=== PATIENT | female | born 1965 | race Caucasian/White ===

== ENCOUNTER 2016-11-10 12:57 | Observation (INO) | payer BC ==
[~2016-11-10] VITALS: Ht 180.3 cm; Wt 80.0 kg
[2016-11-10 13:00] VITALS: BP 142/87; PULSE 96; RESP 24; TEMP 97.8; O2SAT 100
[2016-11-10 13:09] VITALS: BP 120/63; PULSE 69; RESP 18; O2SAT 99
[2016-11-10] MEDS ORDERED: ALUMINUM/MAGNESIUM/SIMETH 30 ML CUP PO ONE (13:30)
[2016-11-10] MEDS ORDERED: LIDOCAINE VISCOUS 2% SOLN 15 ML UDC PO ONE (13:30)
[2016-11-10] MEDS ORDERED: SODIUM CHLORIDE 0.9% FLUSH 10 ML FLUSH IVF PRN (13:30)
[2016-11-10] MEDS ORDERED: ASPIRIN 325 MG TAB PO ONE (13:30)
[2016-11-10 13:40] LABS: BASOPHIL # 0.1 TH/MM3 (0-0.2); BASOPHIL % 1.1 % (0.0-2.0); EOSINOPHIL # 0.2 TH/MM3 (0-0.4); EOSINOPHIL % 2.4 % (0.0-4.0); HEMO FLAGS DIFF FINAL; LYMPH % 36.6 % (9.0-44.0); MEAN CELL VOLUME 86.6 FL (80.0-100.0); MEAN CORPUSCULAR HEMOGLOBIN 29.3 PG (27.0-34.0); MEAN CORPUSCULAR HGB CONC 33.8 % (32.0-36.0); MONO % 10.5 % (0.0-8.0); NEUT % 49.4 % (16.0-70.0); PLATELET COUNT 244 TH/MM3 (150-450); RED BLOOD COUNT 4.62 MIL/MM3 (4.00-5.30); RED CELL DISTRIBUTION WIDTH 14.2 % (11.6-17.2); WHITE BLOOD COUNT 8.1 TH/MM3 (4.0-11.0)
[2016-11-10 13:48] LABS: APTT (PATIENT) 25.8 SEC (24.3-30.1); PROTHROMBIN TIME - PATIENT 10.5 SEC (9.8-11.6)
[2016-11-10 13:52] VITALS: BP_SYST 117; BP_SYST 120; BP_DIAS 63; BP_DIAS 74; PULSE 77; RESP 18; O2SAT 98
--- NOTE | 2016-11-10 14:04 | RADRPT ---
EXAM DATE/TIME: 11/10/2016 13:40 [facility] COMPARISON: No previous studies available for comparison. INDICATIONS : Chest pain MEDICAL HISTORY : None. SURGICAL HISTORY : None. ENCOUNTER: Initial ACUITY: 1 day PAIN SCORE: 2/10 LOCATION: chest FINDINGS: A single view of the chest demonstrates the lungs to be symmetrically aerated without evidence of mas s, infiltrate or effusion. The cardiomediastinal contours are unremarkable. Osseous structures are intact. CONCLUSION: 1. No acute cardiopulmonary disease. Nasir Gomez MD on November 10, 2016 at 14:02 Board Certified Radiologist. This report was verified electronically.
[2016-11-10 14:05] LABS: ANION GAP 11 MEQ/L (5-15); BICARBONATE 23.1 MEQ/L (21.0-32.0); BLOOD UREA NITROGEN 14 MG/DL (7-18); CHLORIDE 106 MEQ/L (98-107); GLOMERULAR FILTRATION RATE 72 ML/MIN (>89); MAGNESIUM 2.3 MG/DL (1.5-2.5); SODIUM (NA) 140 MEQ/L (136-145)
--- NOTE | 2016-11-10 14:05 | PD ---
HPI Chief Complaint: Chest Pain Time Seen by Provider: 13:23 Travel History International Travel<30 days: No Contact w/Intl Traveler<30days: No Traveled to known affect area: No History of Present Illness HPI 51-year-old female presents to the ED for evaluation of a 30 minute history of sudden onset, cramping, central chest pain. Waxing and waning, 9/10 maximally, 4/10 minimally. She denies associated SOB, N/V/diaphoresis. She endorses history of hyperlipidemia. She endorses familial history of HI and cardiac issues and multiple family members. Father of a heart attack at age 80. She's never smoked. She's never had a cardiac workup. She states that she recently stopped taking Premarin and is currently using a topical estrogen cream. She is followed by Dr. Deleon in [facility]. [facility] Past Medical History Immunizations Current: No Triglycerides - High: Yes Influenza Vaccination: No ?: Not Social History Alcohol Use: Yes (on occasion) Tobacco Use: No Substance Use: No Allergies-Medications (Allergen,Severity, Reaction): Coded Allergies: Penicillins (Verified Allergy, Unknown, 11/10/16) banana (Verified Allergy, Unknown, 11/10/16) Review of Systems Except as stated in HPI: all other systems reviewed are Neg Physical Exam Narrative GENERAL: Well-nourished, well-developed white female in [facility]. SKIN: Focused skin assessment warm/dry. HEAD: Normocephalic. EYES: No scleral icterus. No injection or drainage. NECK: Supple, trachea midline. No JVD or lymphadenopathy. CARDIOVASCULAR: Regular rate and rhythm without murmurs, gallops, or rubs. CHEST: Nontender throughout without deformity or crepitus. No retractions. RESPIRATORY: Breath sounds clear and equal bilaterally. No accessory muscle use. GASTROINTESTINAL: Abdomen soft, non-tender, nondistended. Active bowel sounds. MUSCULOSKELETAL: No cyanosis, or edema. BACK: Nontender without obvious deformity. No CVA tenderness. Data Data Last Documented VS Vital Signs Date Time Temp Pulse Resp B/P (MAP) Pulse Ox O2 Delivery O2 Flow Rate FiO2 11/10/16 13:52 98 Room Air 11/10/16 13:52 18 11/10/16 13:52 77 11/10/16 13:00 97.8 Orders Orders Electrocardiogram (11/10/16 13:19) Basic Metabolic Panel (Bmp) (11/10/16 13:19) Ckmb (Isoenzyme) Profile (11/10/16 13:19) Complete Blood Count With Diff (11/10/16 13:19) Magnesium (Mg) (11/10/16 13:19) Prothrombin Time / Inr (Pt) (11/10/16 13:19) Act Partial Throm Time (Ptt) (11/10/16 13:19) Troponin I (11/10/16 13:) Lipase (11/10/16 13:19) Chest, Single Ap (11/10/16 13:19) Ecg Monitoring (11/10/16 13:19) Bilateral Bp Monitoring (11/10/16 13:) Iv Access Insert/Monitor (11/10/16 13:) Oximetry (11/10/16 13:) Oxygen Administration (11/10/16 13:) Aspirin (Aspirin) (11/10/16 13:30) Sodium Chloride 0.9% Flush (Ns Flush) (11/10/16 13:30) Al-Mag Hy-Si 40-40-4 Mg/Ml Liq (Mag-Al P (11/10/16 13:30) Lidocaine 2% Viscous (Xylocaine 2% Visco (11/10/16 13:30) Admit Order (Ed Use Only) (11/10/16 15:02) Labs Laboratory Tests Test 11/10/16 13:30 White Blood Count 8.1 TH/MM3 Red Blood Count 4.62 MIL/MM3 Hemoglobin 13.5 GM/DL Hematocrit 40.0 % Mean Corpuscular Volume 86.6 FL Mean Corpuscular Hemoglobin 29.3 PG Mean Corpuscular Hemoglobin Concent 33.8 % Red Cell Distribution Width 14.2 % Platelet Count 244 TH/MM3 Mean Platelet Volume 10.0 FL Neutrophils (%) (Auto) 49.4 % Lymphocytes (%) (Auto) 36.6 % Monocytes (%) (Auto) 10.5 % Eosinophils (%) (Auto) 2.4 % Basophils (%) (Auto) 1.1 % Neutrophils # (Auto) 4.0 TH/MM3 Lymphocytes # (Auto) 3.0 TH/MM3 Monocytes # (Auto) 0.8 TH/MM3 Eosinophils # (Auto) 0.2 TH/MM3 Basophils # (Auto) 0.1 TH/MM3 CBC Comment DIFF FINAL Differential Comment Prothrombin Time 10.5 SEC Prothromb Time International Ratio 1.0 RATIO Activated Partial Thromboplast Time 25.8 SEC Blood Urea Nitrogen 14 MG/DL Creatinine 0.83 MG/DL Random Glucose 90 MG/DL Calcium Level 9.4 MG/DL Magnesium Level 2.3 MG/DL Sodium Level 140 MEQ/L Potassium Level 4.1 MEQ/L Chloride Level 106 MEQ/L Carbon Dioxide Level 23.1 MEQ/L Anion Gap 11 MEQ/L Estimat Glomerular Filtration Rate 72 ML/MIN Total Creatine Kinase 90 U/L Troponin I LESS THAN 0.02 NG/ML Lipase 181 U/L MDM Medical Decision Making Medical Screen Exam Complete: Yes Emergency Medical Condition: Yes Differential Diagnosis Chest pain versus angina versus ACS versus GERD versus other Narrative Course 51-year-old female presents to the ED for evaluation of a 30 minute history of sudden onset, cramping, central chest pain. Waxing and waning, 9/10 maximally, 4/10 minimally. She denies associated SOB, N/V/diaphoresis. She endorses history of hyperlipidemia. She endorses familial history of HI and cardiac issues and multiple family members. Father of a heart attack at age 80. She's never smoked. She's never had a cardiac workup. She is followed by Dr. Deleon in [facility]. Vitals reviewed. Physical exam is unremarkable. EKG rate 65, sinus rhythm. Normal intervals. Borderline LAD. No acute ST changes. Reviewed by Dr. Garrett. CXR: No acute cardiopulmonary disease. Cardiac enzymes: Negative 1. On recheck the patient reports resolution of her symptoms. I discussed the results of the workup with the patient. I recommended that she be admitted to the chest pain center for serial EKGs and enzymes. The patient does not want to be admitted at this time. I discussed the risk of leaving, up to and including . The patient acknowledges these risks but she still chose to leave [place]. After a phone call to her insurance company the patient has changed her mind and decided to stay for further evaluation. She's quite anxious and tearful. I offered her medications for anxiety, which she declined. She is admitted to the chest pain center for further evaluation. Diagnosis Primary Impression: Chest pain Qualified Codes: R07.9 - Chest pain, unspecified Lilian Cloud Nov 10, 2016 14:05
[2016-11-10 14:10] LABS: POTASSIUM 4.1 MEQ/L (3.5-5.1)
[2016-11-10 14:11] LABS: CREATINE KINASE 90 U/L (26-192)
[2016-11-10] MEDS ORDERED: RESP: ALBUTEROL 2.5 MG/IPRATROPIUM 0.5 MG NEB (PRN) INH (16:00)
[2016-11-10 16:04] VITALS: BP 117/62; PULSE 80; RESP 18; O2SAT 97
--- NOTE | 2016-11-10 16:09 | HHI.HP ---
[facility] Primary Care Physician Josefina Deleon DO Chief Complaint Chest pain History of Present Illness This is a 51-year-old female that presents to ED via private vehicle with her with a complaint of developing a discomfort in the center of her chest while they were riding back in their car. She states the pain was waxing and waning for about an hour. She was not short of breath, nauseous, or diaphoretic with the symptoms. She states she's never had a chest discomfort like this before but has been seen for chest pains in the past. She states she was seen at birth3 weeks ago for chest pain but as a tingling type discomfort. She states that they did blood tests and discharge her. Told her to follow-up with a health editor but she has not had that arranged yet. States she's never had a stress test. Denies recent illness. Denies fevers or chills. Patient states that she has history of hyperlipidemia but did not tolerate statins. She was placed on fenofibrate but saw new physician within the past month and that medication was discontinued and was told that they would reassess after repeating lipid panel. Review of Systems General: Patient denies fevers, chills recent, and recent travel HEENT: Patient denies headache, sore throat, difficulty swallowing. Cardiovascular: Has the chest discomfort as mentioned above. Denies sensation of heart beating rapidly or irregularly. No syncope. Denies diaphoresis. Respiratory: Denies shortness of breath or inspirational chest discomfort. Denies coughing wheezing or hemoptysis. GI: Patient denies nausea, vomiting, diarrhea, abdominal pain, bloody stools. Musculoskeletal: Patient denies joint pain or edema. Denies calf pain or edema. Neurovascular: Patient denies numbness, tingling, weakness in extremities. Denies headache. Endocrine: Denies polyuria and polydipsia. Hematologic: Denies easy bruising. Skin: Denies rash or itching. Past Family Social History Allergies: Coded Allergies: Penicillins (Verified Allergy, Unknown, 11/10/16) banana (Verified Allergy, Unknown, 11/10/16) Past Medical History Hyperlipidemia. Denies hypertension, diabetes, and CAD. Patient is a lifetime nonsmoker. Past Surgical History Noncontributory. Active Ordered Medications Current Medications Medications (Trade) Dose Ordered Sig/Winston Route Start Time Stop Time Status Last Admin (NS Flush) 2 ml UNSCH PRN IVF 11/10/16 13:30 11/10/16 13:39 Family History States that her father at age 80 of a myocardial infarction at onset CAD was in the 60s. Social History Patient states she is a lifetime nonsmoker. Denies illicit drugs. Rarely has alcohol. She is a high school schoolteacher. Physical Exam Vital Signs Vital Signs Date Time Temp Pulse Resp B/P (MAP) Pulse Ox O2 Delivery O2 Flow Rate FiO2 11/10/16 13:52 98 Room Air 11/10/16 13:52 18 98 Room Air 11/10/16 13:52 77 120/63 (82) 117/74 (88) 11/10/16 13:09 69 18 120/63 (82) 99 Room Air 11/10/16 13:07 69 18 99 Room Air 11/10/16 13:00 97.8 96 24 142/87 (105) 100 Physical Exam GENERAL: This is a well-nourished, well-developed patient, in no apparent distress. Patient speaks in clear complete sentences. Patient is pleasant. HEENT: Head is atraumatic and normocephalic. Neck is supple without lymphadenopathy and trachea is midline. No JVD or carotid bruits. CARDIOVASCULAR: Regular rate and rhythm without murmurs, gallops, or rubs. RESPIRATORY: Clear to auscultation. Breath sounds equal bilaterally. No wheezes , rales, or rhonchi. Chest wall is nontender. No use of accessory muscles. GASTROINTESTINAL: Abdomen is nontender, nondistended. Abdomen soft. No obvious pulsatile mass or bruit. No CVA tenderness. Strong femoral pulses bilaterally. Normal bowel sounds in all quadrants. MUSCULOSKELETAL: Patient is moving upper and lower extremities freely. No calf tenderness or edema, no Homans sign. Strong pulses in upper and lower extremities. NEUROLOGICAL: Patient is alert and oriented. Cranial nerves 2-12 are grossly intact. No focal deficits and speech is clear. SKIN: No rash and turgor is normal. Laboratory Laboratory Tests Test 11/10/16 13:30 White Blood Count 8.1 Red Blood Count 4.62 Hemoglobin 13.5 Hematocrit 40.0 Mean Corpuscular Volume 86.6 Mean Corpuscular Hemoglobin 29.3 Mean Corpuscular Hemoglobin Concent 33.8 Red Cell Distribution Width 14.2 Platelet Count 244 Mean Platelet Volume 10.0 Neutrophils (%) (Auto) 49.4 Lymphocytes (%) (Auto) 36.6 Monocytes (%) (Auto) 10.5 Eosinophils (%) (Auto) 2.4 Basophils (%) (Auto) 1.1 Neutrophils # (Auto) 4.0 Lymphocytes # (Auto) 3.0 Monocytes # (Auto) 0.8 Eosinophils # (Auto) 0.2 Basophils # (Auto) 0.1 CBC Comment DIFF FINAL Differential Comment Prothrombin Time 10.5 Prothromb Time International Ratio 1.0 Activated Partial Thromboplast Time 25.8 Blood Urea Nitrogen 14 Creatinine 0.83 Random Glucose 90 Calcium Level 9.4 Magnesium Level 2.3 Sodium Level 140 Potassium Level 4.1 Chloride Level 106 Carbon Dioxide Level 23.1 Anion Gap 11 Estimat Glomerular Filtration Rate 72 Total Creatine Kinase 90 Troponin I LESS THAN 0.02 Lipase 181 Result Diagram: 11/10/16 1330 11/10/16 1330 Imaging Last 48 hours Impressions Chest X-Ray 11/10/16 1319 Signed Impressions: Service Date/Time: Thursday, November 10, 2016 13:40 - CONCLUSION: 1. No acute cardiopulmonary disease. Nasir Gomez MD Course Initial EKG has sinus rhythm without significant ST segment depressions or elevations. Caprini VTE Risk Assessment Caprini VTE Risk Assessment: No/Low Risk (score <= 1) Caprini Risk Assessment Model Point Value = 1 Point Value = 2 Point Value = 3 Point Value = 5 Age 41-60 Minor surgery BMI > 25 kg/m2 Swollen legs Varicose veins or History of unexplained or recurrent spontaneous Oral contraceptives or hormone replacement Sepsis (< 1 month) Serious lung disease, including pneumonia (< 1 month) Abnormal pulmonary function Acute myocardial infarction Congestive heart failure (< 1 month) History of inflammatory bowel disease Medical patient at bed rest Age 61-74 Arthroscopic surgery Major open surgery (> 45 min) Laparoscopic surgery (> 45 min) Malignancy Confined to bed (> 72 hours) Immobilizing plaster cast Central venous access Age >= 75 History of VTE Family history of VTE Factor V Leiden Prothrombin [id number] Lupus anticoagulant Anticardiolipin antibodies Elevated serum homocysteine Heparin-induced thrombocytopenia Other congenital or acquired thrombophilia Stroke (< 1 month) Elective arthroplasty Hip, pelvis, or leg fracture Acute spinal cord injury (< 1 month) Prophylaxis Regimen Total Risk Factor Score Risk Level Prophylaxis Regimen 0-1 Low Early ambulation 2 Moderate Order ONE of the following: *Sequential Compression Device (SCD) *Heparin 5000 units SQ BID 3-4 Higher Order ONE of the following medications: *Heparin 5000 units SQ TID *Enoxaparin/Lovenox 40 mg SQ daily (WT < 150 kg, CrCl > 30 mL/min) *Enoxaparin/Lovenox 30 mg SQ daily (WT < 150 kg, CrCl > 10-29 mL/min) *Enoxaparin/Lovenox 30 mg SQ BID (WT < 150 kg, CrCl > 30 mL/min) AND/OR *Sequential Compression Device (SCD) 5 or more Highest Order ONE of the following medications: *Heparin 5000 units SQ TID (Preferred with Epidurals) *Enoxaparin/Lovenox 40 mg SQ daily (WT < 150 kg, CrCl > 30 mL/min) *Enoxaparin/Lovenox 30 mg SQ daily (WT < 150 kg, CrCl > 10-29 mL/min) *Enoxaparin/Lovenox 30 mg SQ BID (WT < 150 kg, CrCl > 30 mL/min) AND *Sequential Compression Device (SCD) Assessment and Plan Assessment and Plan * Chest pain: Patient will continue to have serial cardiac enzymes and EKGs for ruling out purposes. She'll be seen by cardiology in the morning and the chest pain center. Patient likely undergo a Supa protocol ETT if ruling out. She' ll be discharged home if her stress test was nonischemic with instructions to follow-up with PCP. * Hyperlipidemia: Patient currently now medication. She is following her primary care physician with labs to determine what medication she should be on. Patient is stable at this time. She is agreeable to this plan. Jd Gonsales Nov 10, 2016 16:09
[2016-11-10] MEDS ORDERED: ACETAMINOPHEN/HYDROcodone 325 MG/7.5 MG TAB PO PRN (17:00)
[2016-11-10] MEDS ORDERED: ONDANSETRON HCL 4 MG/2 ML VIAL IV PRN (17:00)
[2016-11-10] MEDS ORDERED: ACETAMINOPHEN 500 MG CPLT PO PRN (17:00)
[2016-11-10] MEDS ORDERED: cloNIDine HCL 0.1 MG TAB PO PRN (17:00)
[2016-11-10] MEDS ORDERED: SODIUM CHLORIDE 0.9% FLUSH 5 ML FLUSH IVF PRN (17:00)
[2016-11-10] MEDS ORDERED: ALPRAZolam 0.25 MG TAB PO PRN (17:00)
[2016-11-10] MEDS ORDERED: ESTRGEL TOPICAL (17:31)
[2016-11-10] MEDS: PANTOPRAZOLE SOD 40 MG DELAYED RELEASE TAB PO SCH (17:34)
[2016-11-10 17:45] LABS: CREATINE KINASE 89 U/L (26-192)
[2016-11-10 17:47] VITALS: BP 110/57; PULSE 70; RESP 18; TEMP 96.3; O2SAT 98
--- NOTE | 2016-11-10 19:17 | EKG ---
Date Performed: 11/10/2016 Time Performed: 13:06:07 PTAGE: 51 years EKG: Sinus rhythm BORDERLINE LEFT AXIS DEVIATION INCOMPLETE RIGHT BUNDLE BRANCH BLOCK BORDERLINE ECG NO PREVIOUS TRACING DOCTOR: Jaron Alvarez Interpretating Date/Time 11/10/2016 19:16:15
[2016-11-10 20:00] VITALS: O2SAT 98
[2016-11-10 20:05] LABS: CREATINE KINASE 76 U/L (26-192)
[2016-11-10] MEDS ORDERED: SODIUM CHLORIDE 0.9% FLUSH 5 ML FLUSH IVF SCH (21:00)
--- NOTE | 2016-11-10 21:48 | EKG ---
Date Performed: 11/10/2016 Time Performed: 16:44:00 PTAGE: 51 years EKG: Sinus rhythm BORDERLINE LEFT AXIS DEVIATION NONSPECIFIC ST/T CHANGES BORDERLINE ECG PREVIOUS TRACING : 11/10/2016 13.06 No significant change from previous tracing noted. DOCTOR: Jaron Alvarez Interpretating Date/Time 11/10/2016 21:47:54
[2016-11-11 04:46] VITALS: BP 105/59; PULSE 64; RESP 18; TEMP 98.7; O2SAT 100
[2016-11-11 07:30] VITALS: BP 95/49; PULSE 65; RESP 17; TEMP 97.8; O2SAT 96
[2016-11-11 08:00] VITALS: PULSE 60
[2016-11-11] MEDS ORDERED: ASPIRIN 325 MG TAB PO SCH (09:00)
[2016-11-11] MEDS: PANTOPRAZOLE SOD 40 MG DELAYED RELEASE TAB PO SCH (09:15)
[2016-11-11] MEDS ORDERED: IOHEXOL 350 MG/ML 10 ML VIAL (for RAD DIAG) IVCONTRAST ONE (10:39)
--- NOTE | 2016-11-11 10:51 | RADRPT ---
EXAM DATE/TIME: 11/11/2016 10:30 [facility] COMPARISON: No previous studies available for comparison. INDICATIONS : Substernal chest pain yesterday. IV CONTRAST: 70 cc Omnipaque 350 (iohexol) IV RADIATION DOSE: 23.06 CTDIvol (mGy) ; Patient positioning MEDICAL HISTORY : None SURGICAL HISTORY : Hysterectomy. ENCOUNTER: Initial ACUITY: 1 day PAIN SCALE: 0/10 LOCATION: Bilateral chest TECHNIQUE: Volumetric scanning of the chest was performed using a pulmonary embolism protocol MIP images were re constructed. Using automated exposure control and adjustment of the mA and/or kV according to patien t size, radiation dose was kept as low as reasonably achievable to obtain optimal diagnostic quality images. DICOM format image data is available electronically for review and comparison. Follow-up recommendations for detected pulmonary nodules are based at a minimum on nodule size and pa tient risk factors according to Fleischner Society Guidelines. FINDINGS: PULMONARY ARTERIES: No filling defects are seen in the pulmonary arteries through the segmental level. LUNGS: There is no consolidation or pneumothorax . No concerning pulmonary nodule is visualized. PLEURAE: There is no pleural thickening or pleural effusion. MEDIASTINUM: There is good visualization of the great vessels of the middle mediastinum. No evidence of mediastin al or hilar adenopathy/mass. MUSCULOSKELETAL: Within normal limits for patient age. MISCELLANEOUS: The visualized upper abdominal organs demonstrate no acute abnormality. After hernia is noted. CONCLUSION: 1. Negative for central pulmonary emboli 2. Hiatal hernia. . Radhames Melissa MD FACR on November 11, 2016 at 10:48 Board Certified Radiologist. This report was verified electronically.
[2016-11-11 11:18] VITALS: BP 91/54; PULSE 67; RESP 19; TEMP 98; O2SAT 97
[2016-11-11 12:30] VITALS: O2SAT 98
--- NOTE | 2016-11-11 14:05 | EKG ---
Date Performed: 11/10/2016 Time Performed: 20:26:45 PTAGE: 51 years EKG: Sinus rhythm MARKED LEFT AXIS DEVIATION ABNORMAL ECG PREVIOUS TRACING : 11/10/2016 16.44 Since previous tracing, no significant change noted DOCTOR: Ashish South Interpretating Date/Time 11/11/2016 14:04:25
[2016-11-11 15:53] VITALS: BP 100/59; PULSE 80; RESP 19; TEMP 98.2; O2SAT 96
--- NOTE | 2016-11-11 15:58 | RADRPT ---
EXAM DATE/TIME: 11/11/2016 13:35 [facility] COMPARISON: No previous studies available for comparison. INDICATIONS : Midsternal chest pain. Angina DOSE: 25.9 mCi Tc99m Myoview at stress 8.4 mCi Tc99m Myoview at rest REST HEART RATE: 97 BPM TARGET HEART RATE: 142 BPM MAX HEART RATE: 151 BPM REST BLOOD PRESSURE: 120/78 mmHg MAX BLOOD PRESSURE: 142/74 mmHg EJECTION FRACTION: 69% MEDICAL HISTORY : Hypertension. SURGICAL HISTORY : Hysterectomy. ENCOUNTER: Initial ACUITY: 1 day PAIN SCALE: 4/10 LOCATION: Midsternal chest TECHNIQUE: The patient underwent upright treadmill exercise in the chest pain center. Continuous ECG tracing wa s monitored during stress. Gated SPECT imaging was performed after stress, and conventional SPECT im aging was performed at rest. The examination was performed on a SPECT/CT scanner, both attenuation-c orrected and non-corrected datasets were reviewed. FINDINGS: DISTRIBUTION: The maximum perfused segment at stress is in the anterolateral wall. PERFUSION STUDY: The pattern of perfusion at stress show some thickening of perfusion to the anteroapical distribution possibly representing some apical thinning or cortical infarct there is no reversibility to suggest ischemia. GATED STUDY: There is intact wall motion and thickening without hypokinetic or dyskinetic segments. CONCLUSION: 1. Apical thinning versus old apical infarct. 2. No scintigraphic findings of ischemia. 3. Excellent wall motion throughout an estimated ejection fraction of 69%. RISK CATEGORY: Low (<1% Annual Mortality Rate) Uli Posey MD on November 11, 2016 at 15:37 Board Certified Radiologist. This report was verified electronically.
--- NOTE | 2016-11-11 16:07 | HHI.DCPOC ---
Discharge Care Plan Diagnosis: (1) Atypical chest pain Goals to Promote Your Health * To prevent worsening of your condition and complications * To maintain your health at the optimal level Directions to Meet Your Goals Take your medications as prescribed Follow your dietary instruction Follow activity as directed Keep your appointments as scheduled Take your immunizations and boosters as scheduled If your symptoms worsen call your PCP, if no PCP go to Urgent Care Center or Emergency Room Smoking is Dangerous to Your Health. Avoid second hand smoke Call the 24-hour hour crisis hotline for domestic abuse at Meenu Viveros Nov 11, 2016 16:07
--- NOTE | 2016-11-12 18:30 | TR ---
Date Performed: 11/11/2016 Time Performed: 14:34:02 DOCTOR: Priscila Parsons DRUG LIST: CLINICAL HISTORY: CHEST PAIN REASON FOR TEST: REASON FOR ENDING: OBSERVATION: CONCLUSION: Supa protocol completed. Stopped sec to exceeding target heart rate and leg fatigue . Maximum GY=656 % Target HR Achieved=90.0% Maximum XR=221/74 Total Exercise Time=5:01. No reprod jewel st pain or discomfort. No ectopy. Good exercise tolerance. Normal bp response. Recovery quick and unr emarkable. Nuclear images pending. COMMENTS:
== END 2016-11-11 17:04 | disposition home or self-care (01) ==
LOC: NEPE 12:57 → NEDA 15:04 → NEPHCDU 17:01
DX: R07.89 Other chest pain (principal); F41.9 Anxiety disorder, unspecified; E78.5 Hyperlipidemia, unspecified; R94.31 Abnormal electrocardiogram [ECG] [EKG]; Z82.49 Family history of ischemic heart disease and other diseases of the circulatory system
CPT/HCPCS: 71010; 71275; 78452; 80048; 82550; 83690; 83735; 84484; 85025; 85379; 85610; 85730; 93005; 93017; 99285; A9502; G0378; Q9967